=== PATIENT | male | born 1940 | race African-American/Black ===

== ENCOUNTER 2025-05-11 15:13 | Emergency (ER) | payer OTHER ==
[~2025-05-11] VITALS: Ht 172.7 cm; Wt 82.0 kg
[2025-05-11 15:16] VITALS: O2SAT 98
[2025-05-11 15:57] LABS: BASOPHILS % 0.8 % (0.0-2.0); EOSINOPHILS % 0.4 % (0.0-5.0); HEMATOCRIT. 41.8 % (42.0-52.0); HEMOGLOBIN. 13.7 g/dL (14.0-18.0); LYMPHOCYTES % 16.6 % (20.0-50.0); MEAN PLATELET VOLUME 6.7 fl (7.4-10.4); MONOCYTES % 13.5 % (2.0-8.0); NEUTROPHILS % 68.7 % (40.0-76.0); PLATELET 252 x1000/uL (130-400); RED BLOOD CELL COUNT 4.83 mill/uL (4.7-6.1); RED CELL DISTRIBUTION WIDTH 13.7 % (11.6-14.6)
[2025-05-11 16:10] LABS: INR 1.2
[2025-05-11 16:13] LABS: CREATININE 2.6 mg/dL (0.6-1.3); TROPONIN I HIGH SENSITIVITY 14 ng/L (3.0-53); UREA NITROGEN BLOOD 33 mg/dL (9-23)
[2025-05-11 16:15] LABS: ASPARTATE AMINOTRANSFERASE 14 IU/L (<34); BILIRUBIN DIRECT 0.3 mg/dL (<=3.0); BILIRUBIN TOTAL 1.1 mg/dL (0.1-1.0); PROTEIN TOTAL 6.4 g/dL (6.0-8.3)
[2025-05-11] MEDS: SODIUM CHLORIDE 0.9% 500 ML IV ONE (17:09)
[2025-05-11 18:31] VITALS: BP 168/75; PULSE 77; RESP 15; TEMP 36.9; O2SAT 98
== END 2025-05-11 18:41 | disposition admitted as inpatient to this hospital (09) ==
LOC: ER 15:13 → EDBEDREQTM 17:32 → EDBEDREQ 17:32 → ENRESERV 18:08 → CANBEDREQ 18:37 → ER 18:41
DX: I95.9 Hypotension, unspecified (principal); R06.02 Shortness of breath; Z95.0 Presence of cardiac pacemaker; Z98.890 Other specified postprocedural states
CPT/HCPCS: 99291; 80076; 80048; 83880; 83735; 85025; 85379; 85610; 85730; 84484; 36415; 71045; 93005; J7040